=== PATIENT | female | born 1995 | race Caucasian/White ===

== ENCOUNTER → 2017-12-05 | Outpatient (CLI) | payer OTHER ==
[~2017-12-05] MED LIST: CIPR500 PO; FERR325 PO; GUAI600T33 PO; IBUPROFEN200 MG PO; Imitrex25 MG PO; MELA3 PO; NAPR375 PO; PROP80ER PO; Pseudoephedrine30 MG PO; SACC250C PO; TOPI50 PO; Tylenol325 MG PO
[2017-12-06 11:25] LABS: Candida species (DNA Probe) Negative (NEGATIVE); G. vaginalis (DNA Probe) Positive (NEGATIVE); T. vaginalis (DNA Probe) Negative (NEGATIVE)
== END ==
LOC: LAB 15:10 → LAB SHORT 15:10
PROVIDERS: Advanced Practice Midwife
DX: N76.0 Acute vaginitis (principal)
CPT/HCPCS: 87480; 87510; 87660

== ENCOUNTER 2018-02-01 23:21 | Emergency (ER) | payer OTHER ==
[~2018-02-01] VITALS: Ht 167.6 cm; Wt 63.5 kg
[~2018-02-01 23:21] MED LIST changes: -GUAI600T33 PO; -Pseudoephedrine30 MG PO
[2018-02-02] MEDS ORDERED: GUAI600T33 PO (02:06)
[2018-02-02] MEDS ORDERED: Pseudoephedrine30 MG PO (02:06)
== END 2018-02-02 02:20 | disposition home or self-care (01) ==
LOC: ER 23:21
DX: H61.21 Impacted cerumen, right ear (principal); H69.91 Unspecified Eustachian tube disorder, right ear; Z79.899 Other long term (current) drug therapy

== ENCOUNTER 2019-09-20 01:13 | Emergency (ER) | payer SELFPAY ==
[~2019-09-20] VITALS: Ht 167.6 cm; Wt 61.2 kg
[~2019-09-20 01:13] MED LIST changes: +GUAI600T33 PO; +Pseudoephedrine30 MG PO
[2019-09-20] MEDS ORDERED: Keflex500 MG PO (03:15)
== END 2019-09-20 03:49 | disposition home or self-care (01) ==
LOC: ER 01:13
DX: S31.811A Laceration without foreign body of right buttock, initial encounter (principal); S31.119A Laceration without foreign body of abdominal wall, unspecified quadrant without penetration into peritoneal cavity, initial encounter; G43.909 Migraine, unspecified, not intractable, without status migrainosus; Z23 Encounter for immunization; Z79.899 Other long term (current) drug therapy; W19.XXXA Unspecified fall, initial encounter
CPT/HCPCS: 12002; 74177; 90471; 90714; 96374-59; 96375-59; 99283-25; A9270-GY; J1885; J2405; J3010; Q9967

== ENCOUNTER 2019-09-23 17:24 | Emergency (ER) | payer OTHER ==
[~2019-09-23] VITALS: Ht 167.6 cm; Wt 68.0 kg
[~2019-09-23 17:24] MED LIST changes: +Keflex500 MG PO
[2019-09-23 17:56] LABS: BASOPHILS ABSOLUTE AUTO 0.03 K/mm3 (0.00-0.23); BASOPHILS PERCENT AUTO 0 % (0-2); EOSINOPHILS ABSOLUTE AUTO 0.01 K/mm3 (0.00-0.68); EOSINOPHILS PERCENT AUTO 0 % (0-6); Hematocrit 42.1 % (33.0-51.0); Hemoglobin 13.7 g/dL (11.5-16.0); IMMATURE GRAN ABSOLUTE AUTO 0.05 K/mm3 (0.00-0.10); IMMATURE GRAN PERCENT AUTO 0 % (0-1); LYMPHOCYTES ABSOLUTE AUTO 1.38 K/mm3 (0.84-5.20); LYMPHOCYTES PERCENT AUTO 11 % (21-46); MONOCYTES ABSOLUTE AUTO 0.77 K/mm3 (0.16-1.47); MONOCYTES PERCENT AUTO 6 % (4-13); Mean Corpuscular HGB 29.8 pg (26.0-34.0); Mean Corpuscular HGB Conc 32.5 g/dL (31.5-36.5); Mean Corpuscular Volume 92 fL (80-100); Mean Platelet Volume 10.2 fL (9.1-12.4); NEUTROPHILS PERCENT AUTO 83 % (41-73); Platelet Count 306 K/mm3 (150-400); RDW Coefficient Variation 11.8 % (11.7-14.2); RDW Standard Deviation 39.5 fL (35.1-46.3); Red Blood Cell Count 4.59 M/mm3 (3.80-5.20); White Blood Cell Count 12.74 K/mm3 (4.00-11.30)
[2019-09-23 18:02] LABS: Source, Urine Clean Catch
[2019-09-23 18:05] LABS: Bilirubin, Urine Neg (Neg); Blood, Urine 3+ (Neg); Glucose Qualitative, Urine Neg (Neg); Ketones, Urine 1+ (Neg); Leukocyte Esterase, Urine Neg (Neg); Nitrite, Urine Neg (Neg); Protein, Urine 3+ (Neg); Specific Gravity, Urine 1.015 (1.003-1.022); Urobilinogen, Urine NORM (Normal)
[2019-09-23 18:14] LABS: Alanine Aminotransfer (ALT/SGP 23 U/L (12-78); Albumin, Blood 3.7 g/dL (3.4-5.0); Alk Phos 61 U/L (50-136); Anion Gap 7 mmol/L (6-16); Aspartate Aminotrans (AST/SGOT 17 U/L (12-37); Bilirubin, Total 0.8 mg/dL (0.1-1.0); Blood Urea Nitrogen 10 mg/dL (8-24); Bun/Creatinine Ratio 10.8 (12.0-20.0); CO2, Blood 23 mmol/L (21-32); Calcium, Blood 8.9 mg/dL (8.5-10.1); Chloride, Blood 113 mmol/L (98-108); Creatinine, Blood 0.93 mg/dL (0.40-1.00); Globulin, Blood 3.8 g/dL (2.2-4.0); Glomerular Filtration Rate >60 (60-); Glucose, Blood 100 mg/dL (70-99); Potassium, Blood 3.8 mmol/L (3.5-5.5); Sodium, Blood 143 mmol/L (136-145); Total Protein, Blood 7.5 g/dL (6.4-8.2)
[2019-09-23 18:16] LABS: Appearance, Urine Hazy (Clear); Color, Urine Yellow (P-Yellow)
[2019-09-23 18:17] LABS: Bacteria Mod /hpf; Squamous Epithelial Cells Mod /hpf (Few)
[2019-09-23] MEDS ORDERED: PROM25 PO (19:37)
[2019-09-23] MEDS ORDERED: Phenergan25 MG PR (19:37)
[2019-09-23] MEDS ORDERED: ONDA4ODT SL (19:39)
== END 2019-09-23 21:00 | disposition home or self-care (01) ==
LOC: ER 17:24
PROVIDERS: Physician Assistant
DX: S30.0XXA Contusion of lower back and pelvis, initial encounter (principal); K92.0 Hematemesis; G43.909 Migraine, unspecified, not intractable, without status migrainosus; Z79.899 Other long term (current) drug therapy; W19.XXXA Unspecified fall, initial encounter
CPT/HCPCS: 36415; 80053; 81001; 81025; 83690; 85025; 86850; 86900; 86901; 87086; 96361; 96374; 96375; 99283-25; J0780; J2405; J7120

== ENCOUNTER 2020-12-20 22:46 | Emergency (ER) | payer OTHER ==
[~2020-12-20] VITALS: Ht 167.6 cm; Wt 63.5 kg
[~2020-12-20 22:46] MED LIST changes: +Cyclobenzaprine5 MG PO; +DOXY100 PO; +ONDA4ODT SL; +Oxycodone-Apap1 EAC3 PO; +PROM25 PO; +Phenergan25 MG PR
[2020-12-20] MEDS ORDERED: METR500 (23:13)
== END 2020-12-21 01:09 | disposition home or self-care (01) ==
LOC: ER 22:46
DX: J02.9 Acute pharyngitis, unspecified (principal); F41.9 Anxiety disorder, unspecified; Z88.1 Allergy status to other antibiotic agents; Z88.8 Allergy status to other drugs, medicaments and biological substances; Z79.899 Other long term (current) drug therapy
CPT/HCPCS: 87081; 87430; 99283

== ENCOUNTER → 2021-06-29 | Outpatient (CLI) | payer OTHER ==
[~2021-06-29] MED LIST changes: +METR500
== END | disposition home or self-care (01) ==
LOC: LAB 15:15 → LAB SHORT 15:15
DX: N39.0 Urinary tract infection, site not specified (principal)
CPT/HCPCS: 87077; 87086; 87186

== ENCOUNTER 2021-10-27 20:57 | Emergency (ER) | payer OTHER ==
[~2021-10-27] VITALS: Ht 167.6 cm; Wt 65.8 kg
== END 2021-10-27 22:17 | disposition home or self-care (01) ==
LOC: ER 20:57
DX: S31.811A Laceration without foreign body of right buttock, initial encounter (principal); G43.909 Migraine, unspecified, not intractable, without status migrainosus; Z88.1 Allergy status to other antibiotic agents; Z88.8 Allergy status to other drugs, medicaments and biological substances; X50.1XXA Overexertion from prolonged static or awkward postures, initial encounter
CPT/HCPCS: 12002; 99282-25

== ENCOUNTER → 2022-01-08 | Outpatient (CLI) | payer OTHER | END | disposition home or self-care (01) | LOC: LAB 11:00 → LAB SHORT 11:00 | DX: J02.9 Acute pharyngitis, unspecified (principal) | CPT/HCPCS: 87081 ==

== ENCOUNTER 2022-12-20 10:44 | Day surgery (SDC) | payer OTHER ==
[~2022-12-20] VITALS: Ht 167.6 cm; Wt 79.5 kg
--- NOTE | 2022-12-20 14:32 | NUR ---
12/20/22 1432 Maame Nye PT COMFORTABLE IN RECLINER EATING CRACKERS AND DRINKING WATER. MOTHER AT PT SIDE
== END 2022-12-20 14:54 | disposition home or self-care (01) ==
LOC: ORSCSDS 10:44
PROVIDERS: Podiatrist
PROC: 0QSN04Z Reposition Right Metatarsal with Internal Fixation Device, Open Approach (ICD-10-PCS; principal; 2022-12-20 12:30)
DX: M20.11 Hallux valgus (acquired), right foot (principal)
CPT/HCPCS: A9270; C1713; J0690; J1100; J1885; J2001; J2370; J2405; J2704; J2795; J3010; J7120

== ENCOUNTER 2023-05-06 23:17 | Emergency (ER) | payer OTHER ==
[~2023-05-06] VITALS: Ht 167.6 cm; Wt 77.1 kg
[2023-05-06 23:54] LABS: Source, Urine Clean Catch
[2023-05-07 00:27] LABS: Appearance, Urine Hazy (Clear); Bilirubin, Urine Neg (Neg); Blood, Urine 1+ (Neg); Color, Urine Yellow (P-Yellow); Glucose Qualitative, Urine Neg (Neg); Ketones, Urine Neg (Neg); Leukocyte Esterase, Urine Neg (Neg); Nitrite, Urine Neg (Neg); Protein, Urine Neg (Neg); Urobilinogen, Urine NORM (Normal)
[2023-05-07 00:47] LABS: Amorphous Mod (0-Heavy); Bacteria Few /hpf; Red Blood Cells, Urine 0-2 /hpf (0-2); Squamous Epithelial Cells Few /hpf (Few); White Blood Cells, Urine 0-2 /hpf (0-5)
[2023-05-07 01:45] LABS: BASOPHILS ABSOLUTE AUTO 0.03 K/mm3 (0.00-0.23); BASOPHILS PERCENT AUTO 0 % (0-2); EOSINOPHILS ABSOLUTE AUTO 0.01 K/mm3 (0.00-0.68); EOSINOPHILS PERCENT AUTO 0 % (0-6); Hemoglobin 14.1 g/dL (11.5-16.0); IMMATURE GRAN ABSOLUTE AUTO 0.02 K/mm3 (0.00-0.10); IMMATURE GRAN PERCENT AUTO 0 % (0-1); LYMPHOCYTES ABSOLUTE AUTO 0.34 K/mm3 (0.84-5.20); LYMPHOCYTES PERCENT AUTO 4 % (21-46); MONOCYTES PERCENT AUTO 17 % (4-13); Mean Corpuscular HGB 30.8 pg (26.0-34.0); Mean Corpuscular HGB Conc 34.4 g/dL (31.5-36.5); Mean Corpuscular Volume 90 fL (80-100); NEUTROPHILS ABSOLUTE AUTO 6.37 K/mm3 (1.96-9.15); NEUTROPHILS PERCENT AUTO 78 % (41-73); Platelet Count 234 K/mm3 (150-400); RDW Coefficient Variation 11.5 % (11.7-14.2); Red Blood Cell Count 4.58 M/mm3 (3.80-5.20); White Blood Cell Count 8.17 K/mm3 (4.00-11.30)
[2023-05-07 02:12] LABS: Albumin, Blood 4.1 g/dL (3.4-5.0); Albumin/Globulin Ratio 1.3 (0.8-1.8); Bilirubin, Total 0.4 mg/dL (0.1-1.0); Bun/Creatinine Ratio 18.6 (12.0-20.0); Creatinine, Blood 0.86 mg/dL (0.40-1.00); Globulin, Blood 3.2 g/dL (2.2-4.0); Potassium, Blood 3.8 mmol/L (3.5-5.5); Total Protein, Blood 7.3 g/dL (6.4-8.2)
[2023-05-07] MEDS ORDERED: BISA10S PR (02:35)
[2023-05-07] MEDS ORDERED: DICY20 PO (02:35)
[2023-05-07] MEDS ORDERED: DOC250 PO (02:35)
[2023-05-07] MEDS ORDERED: ONDA4ODT MM (02:35)
[2023-05-07 03:00] VITALS: BP 95/69
== END 2023-05-07 03:03 | disposition home or self-care (01) ==
LOC: ER 23:17
PROVIDERS: Emergency Medicine
DX: K59.00 Constipation, unspecified (principal); Z88.1 Allergy status to other antibiotic agents; Z88.8 Allergy status to other drugs, medicaments and biological substances
CPT/HCPCS: 74018; 76705; 80053; 81001; 81025; 83690; 85025; 96374; 99284-25; A9270; J2405; J3010

== ENCOUNTER 2023-10-07 11:01 | Emergency (ER) | payer OTHER ==
[~2023-10-07] VITALS: Ht 167.6 cm; Wt 77.1 kg
[~2023-10-07 11:01] MED LIST changes: +BISA10S PR; +DICY20 PO; +DOC250 PO; +ONDA4ODT MM
[2023-10-07 11:23] VITALS: BP 113/79
[2023-10-07 12:03] LABS: BASOPHILS ABSOLUTE AUTO 0.03 K/mm3 (0.00-0.23); BASOPHILS PERCENT AUTO 0 % (0-2); EOSINOPHILS ABSOLUTE AUTO 0.04 K/mm3 (0.00-0.68); EOSINOPHILS PERCENT AUTO 1 % (0-6); Hematocrit 43.2 % (33.0-51.0); Hemoglobin 14.9 g/dL (11.5-16.0); IMMATURE GRAN ABSOLUTE AUTO 0.02 K/mm3 (0.00-0.10); IMMATURE GRAN PERCENT AUTO 0 % (0-1); LYMPHOCYTES ABSOLUTE AUTO 1.78 K/mm3 (0.84-5.20); LYMPHOCYTES PERCENT AUTO 22 % (21-46); MONOCYTES ABSOLUTE AUTO 0.68 K/mm3 (0.16-1.47); MONOCYTES PERCENT AUTO 8 % (4-13); Mean Corpuscular HGB Conc 34.5 g/dL (31.5-36.5); Mean Corpuscular Volume 90 fL (80-100); Mean Platelet Volume 10.1 fL (9.1-12.4); NEUTROPHILS ABSOLUTE AUTO 5.65 K/mm3 (1.96-9.15); NEUTROPHILS PERCENT AUTO 69 % (41-73); Platelet Count 297 K/mm3 (150-400); RDW Coefficient Variation 11.7 % (11.7-14.2); RDW Standard Deviation 38.4 fL (35.1-46.3)
[2023-10-07 12:09] LABS: Source, Urine Clean Catch
[2023-10-07 12:14] LABS: Appearance, Urine Hazy (Clear); Bilirubin, Urine Neg (Neg); Blood, Urine 5+ (Neg); Color, Urine Yellow (P-Yellow); Glucose Qualitative, Urine Neg (Neg); Ketones, Urine Neg (Neg); Leukocyte Esterase, Urine Neg (Neg); Nitrite, Urine Neg (Neg); Protein, Urine Neg (Neg); Specific Gravity, Urine 1.005 (1.003-1.022); Urobilinogen, Urine NORM (Normal)
[2023-10-07 12:22] LABS: Bacteria Many /hpf
[2023-10-07 12:23] LABS: Squamous Epithelial Cells Mod /hpf (Few); Transitional Epithelial Cells Rare /hpf (0-Rare)
[2023-10-07 12:47] LABS: Bun/Creatinine Ratio 17.4 (12.0-20.0); Calcium, Blood 8.6 mg/dL (8.5-10.1); Creatinine, Blood 0.63 mg/dL (0.40-1.00); Potassium, Blood 4.1 mmol/L (3.5-5.5)
== END 2023-10-07 13:30 | disposition left against medical advice (07) ==
LOC: ER 11:01
PROVIDERS: Physician Assistant
DX: O20.9 Hemorrhage in early pregnancy, unspecified (principal); Z3A.01 Less than 8 weeks gestation of pregnancy; Z53.29 Procedure and treatment not carried out because of patient's decision for other reasons
CPT/HCPCS: 76801; 76817; 76830; 80048; 81001; 84702; 85025; 87086; 99282-25

== ENCOUNTER 2023-10-09 14:16 | Day surgery (SDC) | payer OTHER ==
[~2023-10-09] VITALS: Ht 167.6 cm; Wt 84.8 kg
[2023-10-09] VITALS (12 sets, daily range): BP systolic 100–116; BP diastolic 64–83
--- NOTE | 2023-10-09 14:57 | NUR ---
Ambulatory in Day Surgery History, Chart, Medications and Allergies reviewed before start of procedure.Lungs clear T/O to Auscultation. Patient confirms NPO status and agrees with scheduled surgery. Patient States Post-Procedure ride home has been arranged.Pt reports 8/10 abdominal pain and cramping. Pt reports intermittent nausea, but no vomiting.
--- NOTE | 2023-10-09 17:14 | NUR ---
CONTACTED REGARDING PT ONGOING PAIN 05/30-ORDERS GIVEN FOR FENTANYL-SEE EMAR.
--- NOTE | 2023-10-09 18:15 | NUR ---
PT MEDICATED WITH ADDITIONAL FENTANYL 50 MCG IVP FOR 9/10 ABDOMINAL PAIN-NOW REPORTS 5/10 PAIN. REPORT GIVEN TO ELIZABETH GARZA.
--- NOTE | 2023-10-09 18:27 | NUR ---
ASSUMED CARE, REPORT FROM NICA JOHNSON
--- NOTE | 2023-10-09 20:11 | NUR ---
Discharge instructions reviewed with patient. Patient verbalizes understanding. Copy given to patient to take home. MINIMAL VAGINAL BLEEDING NOTED. Discharged via wheelchair to private car for ride home.
== END 2023-10-09 20:20 | disposition home or self-care (01) ==
LOC: ORSCMMR 14:16 → ORD 14:16 → ORSCMMR 14:17 → ORD 21:30
PROVIDERS: Obstetrics & Gynecology
PROC: 10D17ZZ Extraction of Products of Conception, Retained, Via Natural or Artificial Opening (ICD-10-PCS; principal; 2023-10-09 17:00)
DX: O02.1 Missed abortion (principal)
CPT/HCPCS: 88305; A9270; J0690; J1170; J2210; J3010; J7120

== ENCOUNTER 2024-02-17 09:50 | Emergency (ER) | payer OTHER ==
[~2024-02-17] VITALS: Ht 167.6 cm; Wt 77.1 kg
[2024-02-17 11:09] LABS: BASOPHILS ABSOLUTE AUTO 0.04 K/mm3 (0.00-0.23); BASOPHILS PERCENT AUTO 0 % (0-2); EOSINOPHILS ABSOLUTE AUTO 0.06 K/mm3 (0.00-0.68); EOSINOPHILS PERCENT AUTO 1 % (0-6); Hematocrit 45.5 % (33.0-51.0); Hemoglobin 15.1 g/dL (11.5-16.0); IMMATURE GRAN ABSOLUTE AUTO 0.03 K/mm3 (0.00-0.10); IMMATURE GRAN PERCENT AUTO 0 % (0-1); LYMPHOCYTES PERCENT AUTO 19 % (21-46); MONOCYTES ABSOLUTE AUTO 0.82 K/mm3 (0.16-1.47); MONOCYTES PERCENT AUTO 9 % (4-13); Mean Corpuscular HGB 30.3 pg (26.0-34.0); Mean Corpuscular HGB Conc 33.2 g/dL (31.5-36.5); Mean Corpuscular Volume 91 fL (80-100); NEUTROPHILS ABSOLUTE AUTO 6.94 K/mm3 (1.96-9.15); NEUTROPHILS PERCENT AUTO 72 % (41-73); Platelet Count 308 K/mm3 (150-400); RDW Standard Deviation 40.2 fL (35.1-46.3); Red Blood Cell Count 4.98 M/mm3 (3.80-5.20); White Blood Cell Count 9.69 K/mm3 (4.00-11.30)
[2024-02-17] MEDS ORDERED: PROG100 PO (11:19)
[2024-02-17] MEDS ORDERED: Aspir 8181 MG PO (11:22)
[2024-02-17] MEDS ORDERED: Rho(D) Immune Globulin 300 MCG / SYR IM ONE (11:25)
[2024-02-17] MEDS ORDERED: METHYLFOLATE1 EACH (11:32)
[2024-02-17] MEDS ORDERED: VITAMIN B12500 MCG (11:32)
[2024-02-17 11:37] LABS: Bun/Creatinine Ratio 22.3 (12.0-20.0); Calcium, Blood 8.7 mg/dL (8.5-10.1); Creatinine, Blood 0.67 mg/dL (0.40-1.00); Potassium, Blood 3.9 mmol/L (3.5-5.5)
[2024-02-17 11:51] LABS: Source, Urine Clean Catch
[2024-02-17 11:57] LABS: Bilirubin, Urine Neg (Neg); Blood, Urine 2+ (Neg); Glucose Qualitative, Urine Neg (Neg); Ketones, Urine Neg (Neg); Leukocyte Esterase, Urine Neg (Neg); Nitrite, Urine Neg (Neg); Protein, Urine Neg (Neg); Specific Gravity, Urine 1.025 (1.003-1.022); Urobilinogen, Urine NORM (Normal)
[2024-02-17 12:11] LABS: Appearance, Urine Hazy (Clear); Color, Urine Yellow (P-Yellow)
[2024-02-17 12:15] LABS: Amorphous Light (0-Heavy); Bacteria Few /hpf; Mucus Heavy (0-Heavy); Red Blood Cells, Urine 0-2 /hpf (0-2); Squamous Epithelial Cells Few /hpf (Few); Uric Acid Crystals Rare /hpf; White Blood Cells, Urine 0-2 /hpf (0-5)
[2024-02-17 12:25] VITALS: BP 116/75
== END 2024-02-17 12:42 | disposition home or self-care (01) ==
LOC: ER 09:50
PROVIDERS: Physician Assistant
DX: O46.8X1 Other antepartum hemorrhage, first trimester (principal); Z3A.01 Less than 8 weeks gestation of pregnancy; Z88.1 Allergy status to other antibiotic agents
CPT/HCPCS: 76801; 76817; 80048; 81001; 84702; 85025; 86900; 86901; 96372; 99284-25; J2791

== ENCOUNTER 2024-09-30 07:30 | Inpatient (IN) | payer OTHER ==
[~2024-09-30] VITALS: Ht 167.6 cm; Wt 88.1 kg
[2024-09-30] VITALS (21 sets, daily range): BP systolic 90–113; BP diastolic 60–74
[~2024-09-30 07:30] MED LIST changes: +Aspir 8181 MG PO; +METHYLFOLATE1 EACH; +PROG100 PO; +VITAMIN B12500 MCG
[2024-09-30] MEDS ORDERED: CeFAZolin Sodium 2,000 MG in NS 100 ML IV SCH ×2 (10:35→21:00)
[2024-09-30] MEDS ORDERED: Lactated Ringer's 1,000 ML IV SCH ×3 (10:35→14:50)
[2024-09-30] MEDS ORDERED: Metoclopramide HCl 5MG / ML 2ML Vial IV SCH (10:35)
[2024-09-30] MEDS ORDERED: Citric Acid/Sodium Citrate 30 ML BTL PO SCH (10:35)
[2024-09-30 11:02] LABS: BASOPHILS ABSOLUTE AUTO 0.02 K/mm3 (0.00-0.23); BASOPHILS PERCENT AUTO 0 % (0-2); EOSINOPHILS ABSOLUTE AUTO 0.06 K/mm3 (0.00-0.68); EOSINOPHILS PERCENT AUTO 1 % (0-6); Hematocrit 37.3 % (33.0-51.0); Hemoglobin 12.8 g/dL (11.5-16.0); IMMATURE GRAN ABSOLUTE AUTO 0.08 K/mm3 (0.00-0.10); IMMATURE GRAN PERCENT AUTO 1 % (0-1); LYMPHOCYTES ABSOLUTE AUTO 1.28 K/mm3 (0.84-5.20); LYMPHOCYTES PERCENT AUTO 10 % (21-46); MONOCYTES ABSOLUTE AUTO 0.99 K/mm3 (0.16-1.47); MONOCYTES PERCENT AUTO 8 % (4-13); Mean Corpuscular HGB 30.6 pg (26.0-34.0); Mean Corpuscular HGB Conc 34.3 g/dL (31.5-36.5); Mean Corpuscular Volume 89 fL (80-100); Mean Platelet Volume 10.8 fL (9.1-12.4); NEUTROPHILS ABSOLUTE AUTO 9.96 K/mm3 (1.96-9.15); NEUTROPHILS PERCENT AUTO 80 % (41-73); Platelet Count 256 K/mm3 (150-400); RDW Coefficient Variation 12.7 % (11.7-14.2); RDW Standard Deviation 41.1 fL (35.1-46.3); Red Blood Cell Count 4.18 M/mm3 (3.80-5.20); White Blood Cell Count 12.39 K/mm3 (4.00-11.30)
[2024-09-30] MEDS ORDERED: ACTIGALL300 MG PO (11:25)
[2024-09-30] MEDS ORDERED: FentaNYL Citrate 50 MCG/ML 2 ML Injection ONE (12:46)
[2024-09-30] MEDS ORDERED: ePHEDrine Sulfate 50 MG/ML 1ML Injection ONE ×2 (13:25→16:02)
[2024-09-30 13:54] LABS: PCO2 Cord - Arterial 43.7 mmHg (40-50); PO2 Cord - Arterial 23.9 mmHg (16-20); pH Cord - Arterial 7.36 (7.28-7.35)
--- NOTE | 2024-09-30 13:54 | NUR ---
09/30/24 1354 ArcadioGarima rueda DELIVERY OF BREECH BOY, SPON CRY AT 1339, 9/9, GRAMS 2885 (WT 6LB 6OZ), HEAD 13.5IN, CHEST 14IN, LENGTH 20IN. PLACENTA DELIVERED INTACT WITH VELEMENTOUS CORD INSERTION. AROM AT 1338 CLEAR FLUID [facility] CORD SEGMENT SENT WITH RT FOR CORD GAS CORD BLOOD COLLECTED, EXTRA CORD BLOOD COLLECTED PER DR LYNNE REQUEST.
[2024-09-30] MEDS ORDERED: HYDROmorphone HCl/Pf 1MG SYR IV PRN ×2 (13:55→14:00)
[2024-09-30] MEDS ORDERED: Ondansetron HCl 2 MG / ML 2ML Vial IV PRN ×2 (13:55→14:55)
[2024-09-30] MEDS ORDERED: Atropine Sulfate 0.1 MG/ML 10ML SYR IV PRN (13:55)
[2024-09-30 13:56] LABS: PCO2 Cord - Venous 41.9 mmHg (40-50); PO2 Cord - Venous 25.2 mmHg (28-32); pH Umbilical Cord - Venous 7.36 (7.26-7.35)
[2024-09-30] MEDS ORDERED: Ursodiol 300 MG Cap PO SCH (14:00)
[2024-09-30] MEDS ORDERED: HydrALAZINE HCl 20 MG / ML 1ML Vial IV PRN (14:00)
[2024-09-30] MEDS ORDERED: Albuterol 2.5 MG/3 ML VIAL INH PRN (14:00)
[2024-09-30] MEDS ORDERED: ePHEDrine Sulfate 50 MG/ML 1ML Injection IV PRN (14:00)
[2024-09-30] MEDS ORDERED: FentaNYL Citrate 50 MCG/ML 2 ML Injection IV PRN ×2 (14:00)
[2024-09-30] MEDS ORDERED: Simethicone 80 MG Chew PO PRN (14:45)
[2024-09-30] MEDS ORDERED: Acetaminophen 500 MG Tab PO PRN (14:45)
[2024-09-30] MEDS ORDERED: Rho(D) Immune Globulin 300 MCG / SYR IM ONE (14:45)
[2024-09-30] MEDS ORDERED: Promethazine HCl 12.5 MG Supp PR PRN (14:45)
[2024-09-30] MEDS ORDERED: OXYTOCIN/RINGER'S LACTATE 500 ML IV SCH (14:45)
[2024-09-30] MEDS ORDERED: Magnesium Hydroxide Conc 10 ML UDC PO PRN (14:50)
[2024-09-30] MEDS ORDERED: Lanolin Cream TOP PRN (14:50)
[2024-09-30] MEDS ORDERED: Misoprostol 200 MCG Tab PR PRN (14:50)
[2024-09-30] MEDS ORDERED: Promethazine HCl 25 MG Supp PR PRN (14:50)
[2024-09-30] MEDS ORDERED: Methylergonovine Maleate 0.2MG / ML 1ML Amp IM PRN (14:50)
[2024-09-30] MEDS ORDERED: Promethazine HCl 25 MG Tab PO PRN (14:55)
[2024-09-30] MEDS ORDERED: Morphine Sulfate 4 MG/1 ML Injection IV PRN (14:55)
[2024-09-30] MEDS ORDERED: OxyCODONE 5 mg/Acetamin 325 mg TABLET PO PRN (14:55)
[2024-09-30] MEDS ORDERED: Ketorolac Tromethamine 30mg Vial IV SCH (15:00)
[2024-09-30] MEDS ORDERED: Tranexamic Acid 100 ML IV PRN (15:10)
[2024-09-30] MEDS ORDERED: Phenylephrine HCl 100 MCG/ML-NS 10MLSYR (1MG/10ML) ONE (15:48)
[2024-09-30] MEDS ORDERED: Oxytocin 10 Unit / ML Vial ONE (15:48)
[2024-09-30] MEDS ORDERED: Dexamethasone Sod Phos 10 MG/ML 1ML VIAL ONE (15:48)
[2024-09-30] MEDS ORDERED: Ondansetron HCl 2 MG / ML 2ML Vial ONE (15:48)
[2024-09-30] MEDS ORDERED: OxyCODONE HCL 5 MG TAB PO PRN (18:25)
--- NOTE | 2024-09-30 20:59 | NUR ---
PT AMBULATED 1 ASSIST TO THE BATHROOM, DEBI CARE GIVEN WITH SOME ASSISTANCE, PT TOLERATED AMBULATING WELL, BEDOYA CATHETER REMOVED INTACT WITH 1100 OUTPUT.PT RETURNED TO BED AND ASSISTANCE ON POSITIONING AND . WAS EDUCATED ON DIAPER CARES AND SWODDLING OF .
[2024-09-30] MEDS ORDERED: Docusate Sodium 100 MG Cap PO SCH (21:00)
[2024-09-30] MEDS ORDERED: Rho(D) Immune Globulin 300 MCG / SYR IV ONE (22:05)
[2024-10-01] VITALS (8 sets, daily range): BP systolic 92–109; BP diastolic 51–70
[2024-10-01] MEDS ORDERED: DiphenhydrAMINE HCL 25 MG Cap PO ONE (01:30)
[2024-10-01 06:24] LABS: BASOPHILS ABSOLUTE AUTO 0.02 K/mm3 (0.00-0.23); BASOPHILS PERCENT AUTO 0 % (0-2); EOSINOPHILS ABSOLUTE AUTO 0.01 K/mm3 (0.00-0.68); EOSINOPHILS PERCENT AUTO 0 % (0-6); Hematocrit 30.7 % (33.0-51.0); Hemoglobin 10.5 g/dL (11.5-16.0); IMMATURE GRAN ABSOLUTE AUTO 0.07 K/mm3 (0.00-0.10); IMMATURE GRAN PERCENT AUTO 0 % (0-1); LYMPHOCYTES ABSOLUTE AUTO 1.54 K/mm3 (0.84-5.20); LYMPHOCYTES PERCENT AUTO 10 % (21-46); MONOCYTES ABSOLUTE AUTO 1.41 K/mm3 (0.16-1.47); MONOCYTES PERCENT AUTO 9 % (4-13); Mean Corpuscular HGB 30.7 pg (26.0-34.0); Mean Corpuscular HGB Conc 34.2 g/dL (31.5-36.5); Mean Corpuscular Volume 90 fL (80-100); Mean Platelet Volume 10.5 fL (9.1-12.4); NEUTROPHILS PERCENT AUTO 81 % (41-73); Platelet Count 209 K/mm3 (150-400); RDW Coefficient Variation 12.6 % (11.7-14.2); RDW Standard Deviation 41.2 fL (35.1-46.3); Red Blood Cell Count 3.42 M/mm3 (3.80-5.20); White Blood Cell Count 15.85 K/mm3 (4.00-11.30)
[2024-10-01] MEDS ORDERED: Naproxen 500 MG Tab PO PRN (09:00)
[2024-10-01] MEDS ORDERED: Prenatal Vit/FE Fumarate/FA 1 Tab PO SCH (09:00)
[2024-10-01] MEDS ORDERED: Ibuprofen 400 MG Tab PO SCH (12:50)
--- NOTE | 2024-10-01 18:21 | NUR ---
STABLE PATIENT, HAVING BETTER PAIN CONTROL, BREAST FEEDING GOING BETTER USING NIPPLE SHIELD WITH SNS, PT HAS AMBULATED X2 ENCOURAGED TO TRY 1 MORE TIME BEFORE BEDTIME
[2024-10-02 01:07] VITALS: BP 108/71
[2024-10-02 03:23] VITALS: BP 100/60
[2024-10-02 07:17] VITALS: BP 106/73
[2024-10-02 09:43] VITALS: BP 127/80
[2024-10-02] MEDS ORDERED: Percocet 5-3251 EACH PO (11:02)
[2024-10-02] MEDS ORDERED: IBUP400 PO (11:03)
[2024-10-02] MEDS ORDERED: DOCU100 PO (11:03)
--- NOTE | 2024-10-05 12:53 | NUR ---
UPDATED DELIVERY DATE AND TIME PER EMR
== END 2024-10-02 11:50 | disposition home or self-care (01) | DRG 787 ==
LOC: BC 07:30
PROVIDERS: ADMIT Obstetrics & Gynecology
PROC: 10D00Z1 Extraction of Products of Conception, Low, Open Approach (ICD-10-PCS; principal; 2024-09-30 12:45)
DX: O32.1XX0 Maternal care for breech presentation, not applicable or unspecified (principal); O26.643 Intrahepatic cholestasis of pregnancy, third trimester; E78.79 Other disorders of bile acid and cholesterol metabolism; K76.89 Other specified diseases of liver; Z3A.38 38 weeks gestation of pregnancy; Z37.0 Single live birth; Z14.8 Genetic carrier of other disease; O43.123 Velamentous insertion of umbilical cord, third trimester
CPT/HCPCS: 36415; 59025; 82803; 85025; 85460; 86850; 86900; 86901; 86923; A9270; J0690; J1100; J1885; J2371; J2405; J2590; J2791; J3010; J7120